=== PATIENT | female | born 1970 | race Caucasian/White ===

== ENCOUNTER 2021-03-12 16:10 | Emergency (ER) | payer OTHER ==
[2021-03-12] MEDS ORDERED: MOBIC15 MG PO (17:29)
[2021-03-12] MEDS ORDERED: CYCLOBENZAPRINE10 MG PO (17:29)
== END 2021-03-12 17:55 | disposition home or self-care (01) ==
LOC: ER1 16:10
DX: S16.1XXA Strain of muscle, fascia and tendon at neck level, initial encounter (principal); S46.911A Strain of unspecified muscle, fascia and tendon at shoulder and upper arm level, right arm, initial encounter; I10 Essential (primary) hypertension; E78.5 Hyperlipidemia, unspecified; Z79.82 Long term (current) use of aspirin; V49.9XXA Car occupant (driver) (passenger) injured in unspecified traffic accident, initial encounter
CPT/HCPCS: 70450; 72125; 73030; 99284